=== PATIENT | female | born 1950 | race Caucasian/White ===

== ENCOUNTER → 2024-08-25 | Outpatient (CLI) | payer MEDICARE, BC, SELFPAY ==
[2024-08-25 09:27] LABS: Glucose Estimated Average 108 mg/dL (80-131); Hemoglobin A1C 5.4 % Hgb (4.8-6.0)
[2024-08-25 09:29] LABS: Cardiac Risk Estimate 3.3 RATIO (3.7-5.6); Cholesterol 192 mg/dL (132-200); HDL Cholesterol 59 mg/dL (40-60); LDL Cholesterol,Calculated 112 mg/dL (0-130); Thyroid Stimulating Hormone 1.22 uIU/mL (0.55-4.78); Triglycerides 107 mg/dL (30-150)
== END | disposition home or self-care (01) ==
PROVIDERS: PCP Family Medicine; Referring Provider Family Medicine; Visit Provider Family Medicine
DX: E66.9 Obesity, unspecified (principal); I10 Essential (primary) hypertension
CPT/HCPCS: 36415; 80061; 82533; 83036; 84443

== ENCOUNTER 2025-03-01 12:58 | Emergency (ER) | payer MEDICARE, SELFPAY ==
[2025-03-01 13:01] VITALS: BP 190/92; BP 205/95; PULSE 72; RESP 18; TEMP 36.6; O2SAT 95; BMI 33.3
--- NOTE | 2025-03-01 13:18 | XR_ITS ---
Examination: CT thoracic spine, without contrast. 2-D sagittal reconstructions. 2-D coronal reconstructions. 3-D reconstructions. Date and time of exam:March 01, 2025 1556 hours INDICATIONS: Patient fell today with injury of the upper back, upper back pain CTDI: vol (mGy):26.3 DLP: (mGycm):941 Technique: Multiple 1.25 mm axial sections of the thoracic spine without intravenous contrast have been obtained. 2-D sagittal and coronal reconstructions have been obtained. 3-D reconstructions have been obtained. Low dose protocols were performed. One or more of the following dose reduction techniques were used; automated exposure control, adjustment of the mA and/or KV according to patient size, use of iterative reconstruction technique. Findings: Severe osteopenia Moderate chronic osteoporotic compression T12 No acute thoracic fracture Pedicles laminae and posterior spinous processes appear intact No focal thoracic disc protrusion IMPRESSION: No acute thoracic fracture
--- NOTE | 2025-03-01 13:18 | XR_ITS ---
Examination: CT lumbar spine, without contrast. 2-D sagittal reconstructions. 2-D coronal reconstructions. 3-D reconstructions. Date and time of exam:March 01, 2025 1556 hours INDICATIONS: Patient fell today with injury to the lower back, lower back pain CTDI: vol (mGy):37 DLP: (mGycm):1018 Technique: Multiple 1.25 mm axial sections of the lumbar spine without intravenous contrast have been obtained. 2-D sagittal and coronal reconstructions have been obtained. 3-D reconstructions have been obtained. Low dose protocols were performed. One or more of the following dose reduction techniques were used; automated exposure control, adjustment of the mA and/or KV according to patient size, use of iterative reconstruction technique. Findings: Severe osteopenia Moderate chronic posterior parietal compression T12 Acute fracture L1 vertebral body, depression superior endplate, reduction in height 40%, retropulsion of the posterior superior margin of this vertebral body 3 mm Pedicles appear intact at this site More caudad vertebral bodies are unremarkable L4-L5 3 mm central lumbar disc bulge IMPRESSION: Moderate acute compression fracture L1 vertebral body, retropulsion of the posterior superior margin of this vertebral body 3 mm
--- NOTE | 2025-03-01 13:26 | EDNOTE_ITS ---
ED General RME/HPI General Chief complaint: Back Pain/Injury Stated complaint: BACK PAIN Time Seen by Provider: 03/01/25 13:18 Arrival date/time: 03/01/25 12:58 CC: Mid and low back pain HPI fall, 6 days ago. Patient was sitting upright in a hammock when it failed causing her to land on her buttocks. Patient denies bowel or bladder symptoms saddle anesthesia numbness tingling or weakness in the lower extremities. EMS present the patient to the ER in a supine position stating the patient was able to stand and pivot but with significant pain in the low back. Patient is complaining of mid back and lower back pain status post fall. Patient has been taking ibuprofen every 4 hours . Patient has a history of hypertension but is noncompliant on her medications. Related Data Home Medications ?Medication ?Instructions ?Recorded ?Confirmed Ketorolac Tromethamine 1 drp Left eye QID ##10 01/19 07/07 Losartan/Hydrochlorothiazide * 1 tab PO QDAY ##30 01/19 07/07 (HYZAAR 50/12.5 *) ciprofloxacin HCl 0.3 % eye drops 1 drp Left eye QID # #5 02/06/17 escitalopram oxalate 20 mg tablet 20 mg PO QDAY ##30 0 02/06/17 prednisolone sodium phosphate 1 % 1 drp Left eye QID # #10 02/06/17 eye drops Previous Rx's ?Medication ?Instructions ?Recorded meloxicam 7.5 mg tablet 7.5 mg PO QDAY #10 tabs 02/18 12/15 Allergies Allergy/AdvReac Type Severity Reaction Status Date / Time No Known Allergies Allergy Mild Uncoded 02/07/17 09:39 Review of Systems Review of Systems Narrative Review of Systems: GEN: No fever, no chills, no weight loss EYES: No discharge, no visual changes, no pain HEENT: No ear pain, no congestion, no sore throat PULM: No shortness of breath, no cough, no congestion CV: No chest pain, no dyspnea on exertion, no palpitations GI: No nausea, no vomiting, no diarrhea, no pain, no constipation : No frequency, no urgency, no dysuria MUSC/SKEL: No joint pain, + back pain SKIN: No rash PSYCH: No hallucinations, no depression HEME/LYMPH: No easy bleeding or bruising tendencies NEURO: No weakness, no headache ED Exam Narrative Physical exam: [General: In mild discomfort but not in any acute distress Head normocephalic HEENT: Within acceptable limits Neck is supple nontender Chest equal chest rise nontender to palpation Respiratory: Clear to auscultation no wheezes crackles or rubs CV: Rate rhythm is regular no murmurs rubs or clicks Abdomen is distended secondary to body habitus soft nontender no masses positive bowel sounds all 4 quadrants Back: Skin: Intact no petechiae rash induration ulceration or crepitus Extremities: Moving all extremity against resistance cap refill less than 2 seconds neurosensory intact Neuro: Awake alert oriented x3 Glascow coma 15 no focal deficits] Course Course Course Narrative: Patient will be set up with a TLSO brace at home. Will discharge the patient with pain medication. Patient advised to follow-up with a primary care provider. Quality Measures none Orders Category Date Time Status Straight [In and Out Catheter] X1 Care 03/01/25 14:[address] lumbar spine wo con Stat Exams 03/01/25 13:[address] thoracic spine wo con Stat Exams 03/01/25 13:18 Completed CBC Stat Lab 03/01/25 14:55 Completed CMP [Comprehensive Metabolic Panel] Stat Lab 03/01/25 14:55 Completed Urinalysis, C/S if Indicated Stat Lab 03/01/25 14:24 Completed hydrALAZINE INJ [Apresoline Inj] Med 03/01/25 15:51 Discontinued 20 mg IV X1 ONE oxyCODONE/APAP 5/325 [Percocet 5/325] Med 03/01/25 13:23 Discontinued 1 tab PO X1 ONE oxyCODONE/APAP 5/325 [Percocet 5/325] Med 03/01/25 16:44 Once 1 tab PO X1 ONE Vital Signs Vital signs: Vital Signs Temperature 97.8 F 03/01/25 13:01 Pulse Rate 72 03/01/25 13:01 Respiratory Rate 18 03/01/25 13:01 Blood Pressure 190/92 H 03/01/25 13:01 Pulse Oximetry (%) 95 03/01/25 13:01 Oxygen Delivery Method Room Air 03/01/25 13:01 Discharge Plan Plan Patient Disposition: HOME (Self Care) Patient condition on transfer: Stable Prescriptions/Referrals Prescriptions/Med Rec: New meloxicam 7.5 mg tablet 7.5 mg PO QDAY Qty: 10 0RF No Action ciprofloxacin HCl 75 DROP/BTL drops 1 drp Left eye QID Qty: 5 prednisolone sodium phosphate 5 ML suspension 1 drp Left eye QID Qty: 10 escitalopram oxalate 20 MG tablet 20 mg PO QDAY Qty: 30 Ketorolac Tromethamine 5 ML drops 1 drp Left eye QID Qty: 10 Losartan/Hydrochlorothiazide * (HYZAAR 50/12.5 *) 1 EACH tablet 1 tab PO QDAY Qty: 30 Referrals: Pura Ortiz MD [Primary Care Provider] - In 1 week Problem List Clinical Impression: Closed compression fracture of L1 vertebra Patient/Caregiver Discharge Instructions Education Materials: Back Fracture (Compression Fracture) Print Language: Danish Stand Alone Forms: [employer] Award Info., Work/School Release, Patient Portal Info Letter PA/DATABASE REPORT WRITER Supervising Physician PA/DATABASE REPORT WRITER Supervising Physician: Juan F Godinez ENP [facility] Labs Lab(s) Interpretation(s): CBC shows no acute leukocytosis anemia thrombocytopenia CMP shows sodium 146 potassium 3.3 chloride of 110 no other electrolyte imbal ances no renal impairment transaminitis or T. bili elevation Urine is negative for urinary tract infection Imaging Imaging Interpretation(s): Thoracic CT shows an old T12 fracture Lumbar fracture shows a new L1 fracture Medication Administration(s) Medication Administration History Discontinued Medications Hydralazine HCl (Hydralazine Inj 20 Mg/Ml Vial) 20 mg IV X1 ONE Stop: 03/01/25 15:52 Last Admin: 03/01/25 16:15 Dose: 20 mg Documented By: SAM Oxycodone/Acetaminophen (Oxycodone/Apap 5/325 Tablet) 1 tab PO X1 ONE Stop: 03/01/25 13:24 Last Admin: 03/01/25 14:15 Dose: 1 tab Documented By: SAM
[2025-03-01 13:46] VITALS: BP 170/105; PULSE 56; PULSE 67; RESP 18; TEMP 36.4; O2SAT 94; BMI 33.6
[2025-03-01] MEDS: oxyCODONE/APAP 5/325 TABLET 1 TAB PO ×2 (14:15→16:52)
[2025-03-01 14:47] LABS: Collection Type, Urine Clean Catch
[2025-03-01 15:09] LABS: Basophils % (Auto) 1 % (0-2.5); Eosinophils # (Auto) 0.1 Thou/mm3 (0.0-0.5); Eosinophils % (Auto) 1 % (0-10); Hematocrit 37.1 % (36.0-46.0); Immature Granulocytes % (Auto) 0 % (0-0); Immature Granulocytes Auto 0.01 Thou/mm3 (0.00-0.00); Lymphocytes # (Auto) 2.4 Thou/mm3 (1.0-4.8); Lymphocytes % (Auto) 36 % (10-50); Mean Corpuscular Hemoglobin 28.6 pg (25.0-35.0); Mean Corpuscular Volume 82 fL (80-100); Monocytes # (Auto) 0.4 Thou/mm3 (0.0-0.8); Monocytes % (Auto) 6 % (0-12); Neutrophils # (Auto) 3.7 Thou/mm3 (1.8-7.7); Neutrophils % (Auto) 56 % (37-80); Nucleated Red Blood Cell % 0 /100 WBC (0); Platelet Count 192 Thou/mm3 (140-440); RDW Standard Deviation 38.3 fL (36.4-46.3); Red Blood Count 4.55 Miln/mm3 (4.00-5.20); White Blood Count 6.5 Thou/mm3 (3.6-11.0)
[2025-03-01 15:12] LABS: Bilirubin,Urine Negative (Negative); Blood,Urine Negative (Negative); Clarity,Urine Clear (Clear/Hazy); Color,Urine Lt-Yellow (Lt Yel-Yel); Culture Indicated,Urine Not Indicated; Glucose, Urine Negative (Negative); Ketones,Urine Negative (Negative); Leukocyte Esterase,Urine Negative (Negative); Nitrite,Urine Negative (Negative); PH,Urine 5.5 (5.0-7.0); Protein,Urine Trace (Neg - Trace); RBC,Urine < 1 /hpf (0-3); Specific Gravity,Urine 1.026 (1.001-1.035); Squamous Epithelial Cell,Urine < 1 /hpf (0-5); Urobilinogen,Urine Negative mg/dL (0.0-1.0); WBC,Urine 2 /hpf (0-5)
[2025-03-01 15:29] LABS: Alanine Aminotransferase 10 U/L (10-49); Albumin, Serum 4.2 gm/dL (3.4-4.8); Albumin/Globulin Ratio 1.6 (1.2-2.2); Alkaline Phosphatase 79 U/L (46-116); Anion Gap 10 (7-16); Aspartate Amino Transferase 18 U/L (0-34); BUN/Creatinine Ratio 18 Ratio (12-20); Bilirubin,Total 0.5 mg/dL (0.3-1.2); Blood Urea Nitrogen 14 mg/dL (9-23); Calcium 8.8 mg/dL (8.3-10.6); Calcium (Corrected) 8.8 mg/dL (8.5-10.1); Carbon Dioxide 26.4 mMol/L (20.0-31.0); Chloride 110 mMol/L (98-107); Creatinine (Component) 0.8 mg/dL (0.6-1.3); Estimated Creatinine Clearance 65.6 mL/min (>60); Globulin 2.6 gm/dL (2.3-3.5); Glucose 96 mg/dL (74-106); Osmolality,Calculated 291 (275-295); Potassium 3.3 mMol/L (3.4-5.1); Sodium 146 mMol/L (136-145); Total Protein 6.8 gm/dL (5.7-8.2); eGFR > 60 See Note
[2025-03-01 15:50] VITALS: BP 193/102; PULSE 53; RESP 18; TEMP 36.7; O2SAT 97
[2025-03-01 16:15] VITALS: BP 188/84; PULSE 54
[2025-03-01] MEDS: hydrALAZINE INJ 20 MG/ML VIAL IV (16:15)
[2025-03-01 16:47] VITALS: BP 144/76; PULSE 62
[2025-03-01 17:10] VITALS: BP 144/76; PULSE 61; RESP 18
--- NOTE | 2025-03-01 17:27 | PC.SS ---
SS update: attempted contact with [employer] for prescription for a brace for the patient. [employer] was not unavailable as it is after hours, voicemail provided. Patient already d/c home.
== END 2025-03-01 17:04 | disposition home or self-care (01) ==
PROVIDERS: Registered Nurse General Practice; Emergency Provider Family Medicine; PCP Family Medicine
DX: S32.019A Unspecified fracture of first lumbar vertebra, initial encounter for closed fracture (principal); S29.9XXA Unspecified injury of thorax, initial encounter; W19.XXXA Unspecified fall, initial encounter
CPT/HCPCS: 51701; 36415; 72128; 72131; 80053; 81001; 85025; 99284; J0360; A9270